=== PATIENT | male | born 1975 | race African-American/Black ===

== ENCOUNTER 2018-09-16 06:57 | Emergency (ER) | payer SELFPAY ==
[~2018-09-16] VITALS: Ht 185.4 cm; Wt 111.0 kg
[2018-09-16] MEDS ORDERED: ACETAMINOPHEN WITH CODEINE 300/30MG TABLET PO ONE (07:45)
[2018-09-16] MEDS ORDERED: LORAZEPAM 1MG TABLET PO ONE (07:45)
[2018-09-16 09:21] VITALS: BP 118/77
== END 2018-09-16 09:50 | disposition home or self-care (01) ==
LOC: ER 06:57
DX: M51.16 Intervertebral disc disorders with radiculopathy, lumbar region (principal); R03.0 Elevated blood-pressure reading, without diagnosis of hypertension
CPT/HCPCS: 99283